=== PATIENT | female | born 1980 | race Caucasian/White ===

== ENCOUNTER 2016-07-22 02:07 | Inpatient (IN) | payer OTHER ==
[2016-07-17 14:43] LABS: MANUAL DIFF NEEDED? NO; URINE MICRO REVIEW NEEDED? NO; URINE SOURCE CLEAN CATCH
[2016-07-17 14:47] LABS: BASO% 0.5 % (0.0-0.8); BILIRUBIN URINE NEGATIVE (NEGATIVE); BLOOD URINE NEGATIVE (NEGATIVE); COLOR YELLOW; EOS# 0.13 X1000 (0.0-0.7); EOS% 1.1 % (0.0-10.0); GLUCOSE URINE NEGATIVE (NEGATIVE); HEMATOCRIT 40.5 % (37.0-47.0); HEMOGLOBIN 13.6 g/dL (12.0-16.0); IMM GRAN# 0.02 X1000 (0.0-0.04); IMM GRAN% 0.2 % (0.0-0.5); LEUKOCYTES URINE NEGATIVE (NEGATIVE); LYMPH# 3.47 X1000 (1.2-3.4); LYMPH% 29.6 % (20.5-51.1); MCH 29.8 PG (27-31); MCHC 33.6 g/dL (33-37); MCV 88.6 FL (81-99); MONO# 1.25 X1000 (0.11-0.59); MONO% 10.7 % (1.7-9.3); MPV 8.9 FL (7.4-10.4); NEUT% 57.9 % (42.2-75.2); NITRITE URINE NEGATIVE (NEGATIVE); PLT 335 X1000 (130-400); PROTEIN URINE NEGATIVE (NEGATIVE); RBC 4.57 XMIL (4.2-5.4); SP GRAVITY URINE 1.016; TURBIDITY URINE CLEAR (CLEAR); UROBILINOGEN URINE NORMAL (NORMAL)
[2016-07-17 14:49] LABS: UR EPITHELIAL CELLS <10 /HPF (<10); URINE BACTERIA NEGATIVE /HPF; URINE RBC <10 /HPF (<10); URINE WBC <10 /HPF (<10)
[2016-07-22] MEDS ORDERED: TRANSDERM-SCOP ONE (06:16)
[2016-07-22] MEDS ORDERED: PEPCID ONE (06:16)
[2016-07-22] MEDS ORDERED: REGLAN ONE (06:16)
[2016-07-22] MEDS ORDERED: KEFZOL 2 GM/D5W 50 ML ONE (06:17)
[2016-07-22] MEDS ORDERED: LR 1,000 ML ONE ×2 (06:17→14:38)
[2016-07-22] MEDS ORDERED: VALIUM ONE (06:17)
--- NOTE | 2016-07-22 07:11 | HISTORY AND PHYSICAL ---
HISTORY OF PRESENT ILLNESS: Clarissa is a 35-year-old white female 2, para 2 we have followed for quite some time due to chronic worsening of pelvic pain. The patient had exploratory laparotomy a few years ago for a left salpingo-oophorectomy which showed endometrioma. Surgery was quite difficult necessitating general surgery consultation by due to extensive adhesions. The patient was given Lupron which did give relieve. The patient now desires definitive treatment. The patient has followed right adnexa with ultrasounds over the last year which has shown an 8 cm complex cyst which has remained unchanged consistent with endometrioma. PAST MEDICAL HISTORY: Asthma and angioedema. PAST SURGICAL HISTORY: Exploratory laparotomy, diagnostic laparoscopy, ALLERGIES: LATEX, NEOSPORIN. MEDICATIONS: 1. Xolair. 2. Humira. 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 PHYSICAL EXAMINATION: GENERAL: White female in no apparent distress. VITAL SIGNS: Afebrile. Stable. CARDIOVASCULAR: Regular rhythm. LUNGS: Clear. ABDOMEN: Soft, nontender. CERVIX: Parous. UTERUS: Small, nontender. Tenderness in the right adnexa with enlargement noted. PLAN: The patient is admitted for transabdominal hysterectomy with right salpingo-oophorectomy. Dr. of the plastic service will perform abdominoplasty following hysterectomy. Risks of surgery including bleeding, infection, damage to pelvic, anesthesia, blood transfusions are all discussed at length. Informed consent obtained.
[2016-07-22] MEDS ORDERED: BACITRACIN ONE (07:24)
[2016-07-22] MEDS ORDERED: NS 250 ML ONE ×2 (07:24→16:10)
[2016-07-22] MEDS ORDERED: METHYLENE BLUE 1% ONE (07:24)
[2016-07-22] MEDS ORDERED: EXPAREL 1.3% ONE (07:25)
[2016-07-22 08:05] LABS: URINE MICRO REVIEW NEEDED? NO; URINE SOURCE CATH
[2016-07-22 08:11] LABS: BILIRUBIN URINE NEGATIVE (NEGATIVE); BLOOD URINE NEGATIVE (NEGATIVE); COLOR YELLOW; GLUCOSE URINE NEGATIVE (NEGATIVE); LEUKOCYTES URINE NEGATIVE (NEGATIVE); NITRITE URINE NEGATIVE (NEGATIVE); PH URINE 7.5; PROTEIN URINE 70 mg/dL (NEGATIVE); SP GRAVITY URINE 1.027; TURBIDITY URINE HAZY (CLEAR); UROBILINOGEN URINE NORMAL (NORMAL)
[2016-07-22 08:13] LABS: UR EPITHELIAL CELLS <10 /HPF (<10); URINE BACTERIA NEGATIVE /HPF; URINE RBC <10 /HPF (<10); URINE WBC <10 /HPF (<10)
[2016-07-22] MEDS: KEFZOL 1 GM/D5W 50 ML ONE ×2 (10:57→11:00)
--- NOTE | 2016-07-22 11:51 | OPERATIVE NOTE ---
PROCEDURE DATE: 07/22/2016 This is an intraoperative consultation by Dr. Harish Thompson secondary to dense pelvic adhesions and inflammatory state related to previous pelvic surgery and endometriosis. PREOPERATIVE DIAGNOSIS: Endometriosis. POSTOPERATIVE DIAGNOSIS: Endometriosis. PROCEDURE PERFORMED BY: Dr. Demetrio Frost. PROCEDURE PERFORMED: 1. Mobilization of the sigmoid colon and proximal rectum. 2. Repair of serosal injury of the sigmoid colon x2. 3. therapy administrative assistant to Dr. Harish Thompson for a total abdominal hysterectomy. OPERATIVE INDICATION: A 35-year-old female, patient of Dr. Thompson with revious left salpingo-oophorectomy for endometriosis. She is presenting now for a total hysterectomy secondary to the same. He encountered dense pelvic adhesions with the sigmoid stuck to the uterus and the left pelvic sidewall and consulted me intraoperatively to assist with this. OPERATIVE FINDINGS: We were able to easily identify the right ureter it was well away from our dissection. There had been a previous left oophorectomy. Dr. Thompson had already done a right oophorectomy this case. We do not clearly identify this but is well away in the retroperitoneum from our dissection. At the conclusion of the case, there are 2 very superficial serosal tears in the mid and distal sigmoid. OPERATIVE NOTE: Dr. Thompson had made a Pfannenstiel incision. He had already began mobilization of the sigmoid colon, however, he had stopped. He had performed a right oophorectomy. We began in an area of [place] in the more proximal sigmoid colon in the white line and began mobilizing this. There was dense adhesions at the level of pelvic brim, however, we were able to safely began at the level of the sigmoid and separate this using a combination of Metzenbaum scissors and electrocautery. We then entered a more virgin plane distally at the sigmoid rectal junction. In the anterior rectal plane, we were able to develop this. The right pelvic sidewall was less adherent, and we could clearly see the ureter here and preserve this safely. The colon remains viable. There is no injury to the mesentery throughout this dissection. It was very densely inflamed and adherent, however. There were specks of endometriosis that were visible. There adhesions from the endometriosis as well as previous surgical scar. After mobilization of the sigmoid and rectum, we packed the sigmoid colon away, irrigated the abdomen, and I then helped Dr. Thompson with the completion of the hysterectomy. For details, please see his operative note. At the conclusion of the case, we then ran the sigmoid colon. There was a very slight possible serosal tear in the mid sigmoid colon. I over sewed this in an imbricating fashion with 3-0 Vicryl suture. There was one more distally to the sigmoid rectal junction as well that we imbricated with interrupted 3-0 Vicryl sutures. This was a satisfactory repair and mobilized omentum and placed this anterior to the sigmoid and rectum between the vaginal cuff and the sigmoid and rectum. We confirmed hemostasis. Dr. Thompson and his partner then took over and completed their portion of the operation. For more details, please see their dictated operative note. [facility]
[2016-07-22] MEDS ORDERED: DILAUDID ONE (13:41)
[2016-07-22] MEDS ORDERED: DIPRIVAN 1% ONE (13:41)
[2016-07-22] MEDS ORDERED: VERSED ONE (13:41)
[2016-07-22] MEDS ORDERED: FENTANYL ONE ×2 (13:41→13:42)
[2016-07-22] MEDS: DEMEROL ONE ×2 (14:37→14:45)
[2016-07-22] MEDS ORDERED: DEMEROL PCA VIAL ONE (14:37)
[2016-07-22] MEDS ORDERED: BENADRYL IV PRN (15:53)
[2016-07-22] MEDS ORDERED: SODIUM CHLORIDE 0.9% INJ PRN ×2 (15:53→17:00)
[2016-07-22] MEDS ORDERED: DEMEROL PCA VIAL IV PRN (15:53)
[2016-07-22] MEDS ORDERED: PHENERGAN IV PRN (15:53)
[2016-07-22] MEDS ORDERED: ZOFRAN IV PRN ×2 (15:53→16:51)
[2016-07-22] MEDS ORDERED: NARCAN IV PRN (15:53)
[2016-07-22] MEDS: LR 1,000 ML IV SCH (15:55)
[2016-07-22] MEDS ORDERED: ZOFRAN ONE (16:09)
[2016-07-22] MEDS ORDERED: NEOSPORIN OINTMENT PACKET ONE (16:09)
[2016-07-22] MEDS ORDERED: PHENERGAN ONE (16:09)
[2016-07-22] MEDS ORDERED: NEOSTIGMINE ONE (16:09)
[2016-07-22] MEDS ORDERED: HESPAN 500 ML ONE (16:10)
[2016-07-22] MEDS ORDERED: LR 4,000 ML ONE (16:10)
[2016-07-22] MEDS ORDERED: ROBINUL ONE (16:10)
[2016-07-22] MEDS ORDERED: TORADOL ONE (16:10)
[2016-07-22] MEDS ORDERED: ANESTHESIA PB SET 88 IN 5742 ONE (16:10)
[2016-07-22] MEDS ORDERED: DECADRON ONE (16:10)
[2016-07-22] MEDS ORDERED: OFIRMEV 1000 MG/ISOTONIC SOLN 100 ML ONE (16:10)
[2016-07-22] MEDS ORDERED: XYLOCAINE-MPF 2% ONE (16:10)
[2016-07-22] MEDS ORDERED: QUELICIN (DOSE) ONE (16:10)
[2016-07-22] MEDS ORDERED: ZEMURON ONE (16:10)
[2016-07-22] MEDS ORDERED: NORCURON ONE (16:10)
--- NOTE | 2016-07-22 16:32 | OPERATIVE NOTE ---
PROCEDURE DATE: 07/22/2016 PROCEDURE: Cosmetic abdominoplasty. SURGEON: Dustin Barrett MD ICD-10 DIAGNOSIS CODE: Z41.1 cosmetic surgery. CP CODE: 21851-A cosmetic abdominoplasty. INDICATION FOR PROCEDURE: This patient is a 35-year-old white female who has tremendous problems with her uterus and scarring and endometriosis and requires a hysterectomy and oophorectomy by Dr. Thompson. She wants to have an abdominoplasty at the same time. She is a good candidate for that. She was seen in the office for informed consent for this procedure on 07/14/2016. At that point, she understood that she would have a cosmetic abdominoplasty with tightening of her muscles. She understood the risks include infection, blood loss, blood clots in legs, heart problems, lung problems, allergic reactions, or blood and serum collections in the operative sites that might require drainage. She understands exact size and shape cannot be guaranteed as with nonoperative abdomens there can be some asymmetry from side to side. She knows her skin incisions will be from waist to waist and around the umbilicus, that is where scars will be. She understands that her umbilicus can have poor blood supply as it is brought through the new hole under little bit of tension and she will have a numb lower abdomen that can take a year to a year and a half to get better. She understands she cannot do any heavy lifting 5-10 pounds for 8 weeks. She knows she cannot have a TRAM flap in the future with her abdomen skin because that is being cut off in the abdominoplasty. She knows is cosmetic surgery and does not go to her insurance company. DESCRIPTION OF PROCEDURE: The patient brought to the operating after she was marked in outpatient surgery in the sitting position. She went to the operating room, had general anesthesia, was prepped and draped. The chew were reviewed with Dr. Thompson and then he and his partner proceeded to do the hysterectomy. She had a lot of scar tissue but they did successfully do it. He closed the fascia and lightly stapled the skin closed and then the patient was prepped and draped for the abdominoplasty. The chew were remarked with the patient in the flexed position then the upper incisions made with a knife and then dissected with electrocautery to make upper breast skin flaps. They were as thick as the patient's skin and dissected up as far as the xiphoid. She is put in a flexed position. The upper incision was made with a knife and then dissected towards the level of costal margins and the xiphoid. Once that was reached to an appropriate level she is put in the flexed position. The ability to reach the lower incision was confirmed. The lower incision was then made with a knife and then the skin was removed from lateral to medial with electrocautery. The umbilicus was cut around with 15-blade. She had the muscles plicated in the midline with a #1 Maxon [id number] stitches. She had Exparel injected into the muscles in the subcutaneous tissue for postoperative pain control. She was irrigated with bacitracin solution. Hemostasis was achieved with electrocautery. She was tacked closed over 3 drains. She had liposuction done of the flanks and the mons and then she was closed with 2-0 Polysorb interrupted sutures in the fat, a running 3-0 Polysorb deep dermal suture followed by running 4-0 Biosyn subcuticular stitch. The drains were secured with silk drain stitches. The umbilicus was brought through a round hole and then fixed with 5-0 and 4-0 Polysorb interrupted deep dermal sutures and 5-0 nylon stitches. The drains were secured with 6 drain stitches. The patient tolerated the procedure well. She had 550 mL of liposuction aspirate, 200 mL of blood loss for my part and the abdominal weight was 2343 g.
[2016-07-22] MEDS ORDERED: AMBIEN PO PRN (16:54)
[2016-07-22] MEDS ORDERED: MYLICON PO PRN (17:00)
[2016-07-22] MEDS ORDERED: NORCO-5 PO PRN (17:00)
[2016-07-22] MEDS ORDERED: PHENERGAN IM PRN (17:00)
[2016-07-22] MEDS ORDERED: MOTRIN PO PRN (17:00)
[2016-07-22 18:23] LABS: HEMATOCRIT 24.4 % (37.0-47.0)
[2016-07-22] MEDS: KEFZOL 1 GM/D5W 50 ML IV SCH (18:25)
[2016-07-22] MEDS: PYRIDIUM PO SCH (18:25)
[2016-07-22] MEDS: MYLICON PO SCH ×2 (18:26→21:02)
[2016-07-22] MEDS: PERIDEX MT SCH (21:02)
[2016-07-22] MEDS: COLACE PO SCH (21:02)
[2016-07-23] MEDS: LR 1,000 ML IV SCH (00:03)
[2016-07-23] MEDS: KEFZOL 1 GM/D5W 50 ML IV SCH ×3 (01:50→18:04)
[2016-07-23 06:59] LABS: HEMATOCRIT 21.2 % (37.0-47.0); HEMOGLOBIN 6.9 g/dL (12.0-16.0)
[2016-07-23] MEDS: MYLICON PO SCH ×4 (09:05→20:39)
[2016-07-23] MEDS: PERIDEX MT SCH ×2 (09:05→20:38)
[2016-07-23] MEDS: PYRIDIUM PO SCH ×3 (09:05→18:04)
[2016-07-23] MEDS: COLACE PO SCH ×2 (09:05→20:38)
[2016-07-23] MEDS: NORCO-10 PO PRN ×3 (12:15→20:39)
[2016-07-23 13:41] LABS: MANUAL DIFF NEEDED? NO
[2016-07-23 13:55] LABS: BASO% 0.2 % (0.0-0.8); EOS# 0.06 X1000 (0.0-0.7); EOS% 0.5 % (0.0-10.0); HEMATOCRIT 21.6 % (37.0-47.0); IMM GRAN# 0.03 X1000 (0.0-0.04); IMM GRAN% 0.2 % (0.0-0.5); LYMPH# 2.55 X1000 (1.2-3.4); LYMPH% 20.7 % (20.5-51.1); MCH 29.9 PG (27-31); MCHC 32.4 g/dL (33-37); MCV 92.3 FL (81-99); MONO# 1.71 X1000 (0.11-0.59); MONO% 13.9 % (1.7-9.3); NEUT% 64.5 % (42.2-75.2); PLT 277 X1000 (130-400); RBC 2.34 XMIL (4.2-5.4)
[2016-07-24] MEDS: NORCO-10 PO PRN ×4 (00:33→23:33)
[2016-07-24] MEDS: KEFZOL 1 GM/D5W 50 ML IV SCH ×3 (02:16→18:14)
[2016-07-24 06:02] LABS: HEMATOCRIT 20.2 % (37.0-47.0); HEMOGLOBIN 6.4 g/dL (12.0-16.0); MCH 30.2 PG (27-31); MCHC 31.7 g/dL (33-37); MCV 95.3 FL (81-99); MPV 9.2 FL (7.4-10.4); RBC 2.12 XMIL (4.2-5.4)
[2016-07-24] MEDS: MYLICON PO SCH ×4 (09:50→20:34)
[2016-07-24] MEDS: PERIDEX MT SCH ×2 (09:50→20:34)
[2016-07-24] MEDS: NUBAIN IV PRN ×2 (09:50→13:32)
[2016-07-24] MEDS: COLACE PO SCH ×2 (09:50→20:34)
[2016-07-24] MEDS: PYRIDIUM PO SCH ×3 (09:50→20:34)
[2016-07-24] MEDS: DEMEROL IM PRN ×4 (15:54→23:30)
[2016-07-25] MEDS: DEMEROL IM PRN ×6 (02:00→20:59)
[2016-07-25] MEDS: KEFZOL 1 GM/D5W 50 ML IV SCH ×2 (02:00→17:08)
[2016-07-25] MEDS: NORCO-10 PO PRN ×3 (03:38→20:58)
[2016-07-25 06:46] LABS: BASO% 0.2 % (0.0-0.8); EOS# 0.41 X1000 (0.0-0.7); EOS% 3.2 % (0.0-10.0); HEMATOCRIT 18.3 % (37.0-47.0); IMM GRAN% 0.8 % (0.0-0.5); LYMPH# 3.47 X1000 (1.2-3.4); LYMPH% 27.5 % (20.5-51.1); MANUAL DIFF NEEDED? NO; MCH 29.4 PG (27-31); MCHC 31.7 g/dL (33-37); MCV 92.9 FL (81-99); MONO# 1.37 X1000 (0.11-0.59); MONO% 10.8 % (1.7-9.3); MPV 9.1 FL (7.4-10.4); NEUT% 57.5 % (42.2-75.2); PLT 289 X1000 (130-400); RBC 1.97 XMIL (4.2-5.4)
[2016-07-25] MEDS ORDERED: NS 500 ML ONE (07:45)
[2016-07-25] MEDS ORDERED: TYLENOL PO ONE (07:45)
[2016-07-25] MEDS ORDERED: BENADRYL PO ONE (07:45)
[2016-07-25 07:48] LABS: HEMOGLOBIN 5.8 g/dL (12.0-16.0)
[2016-07-25] MEDS: MYLICON PO SCH ×3 (08:57→20:15)
[2016-07-25] MEDS: PYRIDIUM PO SCH ×3 (08:57→17:07)
[2016-07-25] MEDS: COLACE PO SCH ×2 (08:57→20:15)
[2016-07-25] MEDS: PERIDEX MT SCH ×2 (08:58→20:14)
[2016-07-25] MEDS: PHENERGAN IV PRN (18:35)
[2016-07-26] MEDS: KEFZOL 1 GM/D5W 50 ML IV SCH ×2 (00:19→09:55)
[2016-07-26] MEDS: DEMEROL IM PRN (00:49)
[2016-07-26 05:49] LABS: MANUAL DIFF NEEDED? NO
[2016-07-26 06:33] LABS: BASO% 0.3 % (0.0-0.8); EOS# 0.68 X1000 (0.0-0.7); EOS% 5.9 % (0.0-10.0); HEMATOCRIT 26.8 % (37.0-47.0); HEMOGLOBIN 8.7 g/dL (12.0-16.0); IMM GRAN% 0.9 % (0.0-0.5); LYMPH# 2.93 X1000 (1.2-3.4); LYMPH% 25.5 % (20.5-51.1); MCHC 32.5 g/dL (33-37); MCV 92.4 FL (81-99); MONO# 1.23 X1000 (0.11-0.59); MONO% 10.7 % (1.7-9.3); MPV 9.2 FL (7.4-10.4); NEUT% 56.7 % (42.2-75.2); PLT 336 X1000 (130-400)
[2016-07-26 08:34] VITALS: BP 111/60
[2016-07-26] MEDS: PYRIDIUM PO SCH (09:49)
[2016-07-26] MEDS: COLACE PO SCH (09:50)
[2016-07-26] MEDS: MYLICON PO SCH ×2 (09:51→10:09)
[2016-07-26] MEDS: PERIDEX MT SCH (09:54)
[2016-07-26] MEDS: PHENERGAN IV PRN (10:09)
[2016-07-26] MEDS: NUBAIN IV PRN (10:10)
--- NOTE | 2016-07-26 12:07 | DISCHARGE SUMMARY ---
ADMISSION DATE: 07/22/2016 DISCHARGE DATE: 07/26/2016 ADMISSION DIAGNOSES: 1. Chronic pelvic pain. 2. History of endometriosis. 3. Adnexal mass. 4. Excessive abdominal skin. DISCHARGE DIAGNOSES: 1. Chronic pelvic pain. 2. History of endometriosis. 3. Adnexal mass. 4. Excessive abdominal skin. 5. Severe adhesive disease. PRINCIPAL PROCEDURES: 1. Transabdominal hysterectomy with right salpingo-oophorectomy. 2. Mobilization of sigmoid colon with extensive lysis of adhesions by Dr. Frost, operating room consultation, [facility]. 3. Cosmetic abdominoplasty by Dr. Dustin Barrett. DISCHARGE DIET: Regular. DISCHARGE DISPOSITION: Home DISCHARGE FOLLOWUP: Three days. POSTOPERATIVE COURSE: The patient is 35-year-old white female, 2, para 2 who presented for the above procedure on 07/22/2016. Abdominal hysterectomy was exceedingly difficult with extensive blood loss due to extensive lysis of adhesions necessitating OR consultation by General Surgery. On postoperative day zero, a hematocrit that afternoon was 24 and patient's hematocrit was performed after patient had borderline-low urine output, but generally, vital signs were stable. The next morning, output had improved and hematocrit had dropped to 22. The patient, overall though, was stable, and exam was consistent for postoperative day 1. On postoperative day 2, patient was ambulating and generally was stable. However, hematocrit again had drifted down to 20%. Pulse remained stable as well as blood pressure, and urine output appeared within normal limits. Abdominal drains also were clear, and patient was not having any significant vaginal bleeding. On postoperative day 3, however, the patient's hematocrit had drifted down to 18%, and the evening prior, the patient reported that when she was helped to the bathroom she became weak and dizzy and generally felt lethargic that morning with lack of energy. Risks and benefits of blood transfusion were extensively discussed with patient and her family, and 2 units of packed red blood cells were given over the course of the day. The second unit of blood was not completed until that evening, and the patient was kept overnight to let the blood equilibrate and make sure that it did not drop any more but to evaluate for a third unit of blood. The following morning, the hematocrit was 26%, and the patient's vital signs and exam were markedly improved as well as her subjective findings. Extensive discharge instructions were given. The patient will follow up with Dr. Barrett on Thursday and in my office later that week. The patient's prescriptions were given prior to her discharge.
--- NOTE | 2016-08-18 07:09 | OPERATIVE NOTE ---
PREOPERATIVE DIAGNOSES: 1. Chronic pelvic pain with history of endometriosis. 2. Adnexal mass. 3. Laxity of adipose tissue. POSTOPERATIVE DIAGNOSIS: Chronic pelvic pain with history of endometriosis. PROCEDURE: 1. Transabdominal hysterectomy with right salpingo-oophorectomy. 2. Extensive lysis of adhesions. SURGEON: Harish Thompson MD SPECIAL EVENTS MANAGER: Rocael Ford MD INTRAOPERATIVE CONSULTATION: Aimee Frost MD DESCRIPTION OF PROCEDURE: The patient was taken to the operating room. She was prepped and draped in the usual fashion. After general anesthesia was administered and adequate anesthetic level obtained, time-out was performed. Everybody in room in agreement with procedure. A Pfannenstiel incision was carried out through patient's previous scar site. Incision was taken down to underlying fascia with scalpel. The fascia was taken down from the underlying rectus muscle with Humaira clamps and Tan scissors. The peritoneum was bluntly entered and extended under direct visualization by Tan scissors. An O'Florin-O'Mullins self-retaining retractor was placed. Inspection of pelvis revealed dense adhesive disease. The right adnexa as well as uterus were completely adherent to the rectosigmoid colon. There was no demarcation of the entire posterior cul-de-sac or the anterior cul-de-sac due to scarring. The uterus was grabbed with a Adam clamp and dissection was begun anteriorly. We were able to exposure the anterior endopelvic fascia, taking down the bladder with Metzenbaum scissors and DeBakey's posterior, however, dissection did not present itself to be very easy. At this point, decision to call Dr. Frost of the General Surgery Service to assist was made and Dr. Frost provided his excellent service. Once Dr. Frost arrived, we were able to mobilize the rectosigmoid colon off the posterior wall of the uterus as well as dissect the right adnexa off the right sidewall as well as the colon, dissect the retroperitoneal space, and identify the right ureter. This was done using Metzenbaum scissors and smooth pickups. Also note we did lose a fair amount of blood during this step due to constant oozing. Once the uterus was mobilized, the LigaSure was used on the left side. The remnant of the uteroovarian ligament was clamped, cauterized and cut. This was taken down to the level of the uterine artery, which was clamped, cauterized and cut. The infundibulopelvic ligament on the right side was then clamped, cauterized, and cut, again using LigaSure. The uteroovarian ligament was clamped, cauterized, and cut down to broad ligament to the level of the uterine artery. The anterior reflection of the bladder was then taken down further, again, with Metzenbaum scissors and smooth pickups. Straight Zeppelin clamps were then used along with scalpel and 0 Vicryl suture. Once the vaginal cuff was entered, the cervix and uterus were removed in its entirety with scissors. Each angle was secured with 0 Vicryl suture. The vaginal cuff was then run with 0 Vicryl suture in a running locking fashion. Copiously irrigated was used. Overall good hemostasis was noted. I did place a large piece of Gelfoam over the dissection bed due to oozing that was noted. All counts were correct. The peritoneum was then closed with 0 Chromic in a running fashion. The fascia was closed with #1 Vicryl in running fashion in the midline. The skin was then closed with becki. Please see Dr. Dustin Barrett's surgical note for the abdominoplasty portion of the surgery.
== END 2016-07-26 11:56 | disposition home or self-care (01) | DRG 742 ==
LOC: SURHOLD 02:07 → 4N 16:34
PROVIDERS: ADMIT Obstetrics & Gynecology; ATTEND Obstetrics & Gynecology
PROC: 0UT50ZZ Resection of Right Fallopian Tube, Open Approach (ICD-10-PCS; 2016-07-22)
PROC: 0DNE0ZZ Release Large Intestine, Open Approach (ICD-10-PCS; 2016-07-22)
PROC: 0DNW0ZZ Release Peritoneum, Open Approach (ICD-10-PCS; 2016-07-22)
PROC: 0UN90ZZ Release Uterus, Open Approach (ICD-10-PCS; 2016-07-22)
PROC: 0JB80ZZ Excision of Abdomen Subcutaneous Tissue and Fascia, Open Approach (ICD-10-PCS; 2016-07-22)
PROC: 0UT90ZZ Resection of Uterus, Open Approach (ICD-10-PCS; principal; 2016-07-22 07:01)
PROC: 0UTC0ZZ Resection of Cervix, Open Approach (ICD-10-PCS; 2016-07-22 07:01)
PROC: 0UT00ZZ Resection of Right Ovary, Open Approach (ICD-10-PCS; 2016-07-22 07:01)
PROC: 30233N1 Transfusion of Nonautologous Red Blood Cells into Peripheral Vein, Percutaneous Approach (ICD-10-PCS; 2016-07-25)
DX: N80.3 Endometriosis of pelvic peritoneum (principal); N99.61 Intraoperative hemorrhage and hematoma of a genitourinary system organ or structure complicating a genitourinary system procedure; J45.909 Unspecified asthma, uncomplicated; N80.1 Endometriosis of ovary; Z79.899 Other long term (current) drug therapy; Z87.891 Personal history of nicotine dependence; M45.9 Ankylosing spondylitis of unspecified sites in spine; L98.7 Excessive and redundant skin and subcutaneous tissue; Z87.442 Personal history of urinary calculi; K21.9 Gastro-esophageal reflux disease without esophagitis; Z41.1 Encounter for cosmetic surgery
CPT/HCPCS: 81001; 84703; 85014; 85018; 85025; 85027; 86850; 86900; 86901; 86920; 88300; 88307; 94761; 94799; C9290; J0131; J0330; J0690; J1100; J1170; J1885; J2175; J2250; J2300; J2405; J2550; J3010; J7040; J7050; J7120; P9016; Q9968; J2710